=== PATIENT | female | born 1980 | race African-American/Black ===

== ENCOUNTER 2016-09-16 05:12 | Inpatient (IN) | payer OTHER ==
[~2016-09-16] VITALS: Ht 157.5 cm; Wt 91.6 kg
[~2016-09-16 05:12] MED LIST: ABILIFY 5 MG TAB5 M1 PO; AMBIEN 5 MG TABL5 M1 PO; CLONIDINE1000 MCG/1; CREON DR 12,001 EACH PO; DEMEROL50 MG PO; DIGESTIVE ENZY1 EACH PO; DILAUDID 2 MG TA2 MG PO; DOLOPHINE HCL5 MG PO; ERY-TAB500 MG PO; ERYTHROCIN STE250 MG PO; FENTANYL 1100 MCG/HR TP; FLAGYL500 MG PO; HCTZ; HYDROMORPHO2 MG/1 M5; KEFLEX500 MG PO; KEPPRA 500 MG500 M1 PO; LISINOPRIL-HCT1 EAC2 PO; LISINOPRIL2.5 MG PO; MS CONTIN 30 MG30 MG PO; MS CONTIN15 MG PO; NICOTINE TRANSDE7 MG TRANSDERM; NORCO 5-325 TA1 EACH PO; OXYCODONE HCL 55 MG PO; PANCREAZE 21,01 EACH; PERCOCET 5-3251 EACH PO; PERCOCET PO; PHENERGAN 25 MG25 M1 PO; PRINIVIL10 MG PO; PROBIOTIC1 EAC1 PO; PROMETHAZI25 MG/1 M2 IM; PROMETHAZINE HC25 M1 PO; PROMS25 WY RECTAL; PROZAC10 MG PO; REGLAN 10 MG TA10 M1; SEROQUEL 25 MG25 M2 PO; XANAX 0.5 MG0.5 M1 PO; XANAX 0.5 MG0.5 MG PO; XANAX 1 MG TABLE1 MG PO; XANAX XR1 MG PO; ZANTAC 150MG T150 M1 PO; ZOFRAN ODT4 MG PO; ZOFRAN4 MG PO; [UNRECOGNIZED DRUG - OTHER] GT
[2016-09-16 05:14] VITALS: BP 193/113
[2016-09-16 07:35] LABS: ABSOLUTE NEUTROPHILS 4.3 thou/uL (1.4-8.2); BASOPHILS 1.3 % (0.0-2.0); EOSINOPHILS 1.3 % (0.0-3.0); HEMATOCRIT 38.8 % (37.0-47.0); HEMOGLOBIN 12.8 gm/dL (12.0-15.0); LYMPHOCYTES 38.9 % (24.0-44.0); MCH 27.8 pg (26.0-34.0); MCV 84.2 fL (80.0-100.0); PLATELET COUNT 329 thou/uL (150-400); POLYS 53.5 % (36.0-66.0); RBC 4.61 mil/uL (4.20-5.00)
[2016-09-16 07:49] LABS: MANUAL DIFF NO
[2016-09-16 07:52] LABS: ALBUMIN 3.3 g/dL (3.4-5.0); CALCIUM 8.3 mg/dL (8.5-10.1); CREATININE 0.6 mg/dL (0.6-1.0); TOTAL BILIRUBIN 0.3 mg/dL (<0.1-1.0); TOTAL PROTEIN 7.7 g/dL (6.4-8.2)
[2016-09-16 08:06] LABS: POTASSIUM 2.7 mmol/L (3.5-5.1)
[2016-09-16 09:50] VITALS: BP 160/89
[2016-09-16 10:15] VITALS: BP 154/92
[2016-09-16 15:03] VITALS: BP 133/62
[2016-09-16 20:00] VITALS: BP 139/80
[2016-09-17 04:00] VITALS: BP 125/65
[2016-09-17 04:47] LABS: HEMATOCRIT 32.5 % (37.0-47.0); MCH 28.4 pg (26.0-34.0); MCHC 33.7 g/dL (28.0-37.0); MCV 84.1 fL (80.0-100.0); RBC 3.86 mil/uL (4.20-5.00); RDW 14.4 % (10.5-14.5); WBC 6.2 thou/uL (4.0-11.0)
[2016-09-17 04:59] LABS: CALCIUM 7.6 mg/dL (8.5-10.1); CREATININE 0.6 mg/dL (0.6-1.0); POTASSIUM 3.2 mmol/L (3.5-5.1)
[2016-09-17 09:07] VITALS: BP 119/63
[2016-09-17 13:30] LABS: CALCIUM 7.8 mg/dL (8.5-10.1); CREATININE 0.6 mg/dL (0.6-1.0); POTASSIUM 3.2 mmol/L (3.5-5.1)
[2016-09-17 16:05] VITALS: BP 134/71
[2016-09-17 20:00] VITALS: BP 165/110
[2016-09-18 00:10] VITALS: BP 162/92
[2016-09-18 05:00] VITALS: BP 178/101
[2016-09-18 09:00] VITALS: BP 155/96
[2016-09-18 17:24] VITALS: BP 169/95
[2016-09-18 20:00] VITALS: BP 145/82
[2016-09-19] MEDS ORDERED: OXYCONTIN20 M1 PO (02:38)
[2016-09-19] MEDS ORDERED: OXYCONTIN10 M1 PO (02:39)
[2016-09-19 04:00] VITALS: BP 147/74
[2016-09-19 07:48] VITALS: BP 153/91
[2016-09-19 16:14] VITALS: BP 152/87
[2016-09-19 20:00] VITALS: BP 175/93
[2016-09-20 03:46] VITALS: BP 157/84
[2016-09-20 07:40] VITALS: BP 165/94
[2016-09-20 11:17] VITALS: BP 181/86
[2016-09-20 16:10] VITALS: BP 164/87
[2016-09-20 20:00] VITALS: BP 187/87
[2016-09-21 03:59] VITALS: BP 165/94
[2016-09-21 12:07] LABS: HEMATOCRIT 32.6 % (37.0-47.0); HEMOGLOBIN 10.9 gm/dL (12.0-15.0); MCH 28.1 pg (26.0-34.0); MCHC 33.3 g/dL (28.0-37.0); MCV 84.2 fL (80.0-100.0); RBC 3.87 mil/uL (4.20-5.00); RDW 14.1 % (10.5-14.5); WBC 7.9 thou/uL (4.0-11.0)
[2016-09-21 12:22] LABS: CALCIUM 8.3 mg/dL (8.5-10.1); CREATININE 0.6 mg/dL (0.6-1.0)
[2016-09-21 12:25] LABS: POTASSIUM 2.7 mmol/L (3.5-5.1)
[2016-09-21 15:52] VITALS: BP 151/73
[2016-09-21 20:00] VITALS: BP 152/87
[2016-09-22 03:35] VITALS: BP 164/97
[2016-09-22 04:29] LABS: HEMATOCRIT 32.8 % (37.0-47.0); HEMOGLOBIN 10.9 gm/dL (12.0-15.0); MCH 28.4 pg (26.0-34.0); MCHC 33.4 g/dL (28.0-37.0); RBC 3.85 mil/uL (4.20-5.00); RDW 14.3 % (10.5-14.5); WBC 7.5 thou/uL (4.0-11.0)
[2016-09-22 04:37] LABS: CREATININE 0.7 mg/dL (0.6-1.0)
[2016-09-22 04:39] LABS: % SATURATION 10 % (20-39); IRON 36 ug/dL (50-170); TIBC 359 ug/dL (250-450); UIBC 323 ug/dL
[2016-09-22 07:40] VITALS: BP 163/85
[2016-09-22] MEDS ORDERED: OXYCODONE HCL 55 MG PO (09:09)
[2016-09-22] MEDS ORDERED: OXYCONTIN20 M1 PO (09:09)
[2016-09-22 12:41] VITALS: BP 163/85
== END 2016-09-22 14:24 | disposition home or self-care (01) | DRG 439 ==
LOC: ER 05:12 → 4E 09:03 → EROBS 09:03 → 4E 10:10
PROVIDERS: Emergency Medicine; Family Medicine; Internal Medicine; Internal Medicine Gastroenterology
DX: K86.1 Other chronic pancreatitis (principal); E44.1 Mild protein-calorie malnutrition; F43.10 Post-traumatic stress disorder, unspecified; G43.909 Migraine, unspecified, not intractable, without status migrainosus; E87.6 Hypokalemia; F17.210 Nicotine dependence, cigarettes, uncomplicated; E83.42 Hypomagnesemia; F41.1 Generalized anxiety disorder; I10 Essential (primary) hypertension; K59.00 Constipation, unspecified; F32.9 Major depressive disorder, single episode, unspecified; Z88.6 Allergy status to analgesic agent; Z88.5 Allergy status to narcotic agent; Z88.0 Allergy status to penicillin; Z88.8 Allergy status to other drugs, medicaments and biological substances; Z90.49 Acquired absence of other specified parts of digestive tract; Z80.0 Family history of malignant neoplasm of digestive organs; Z90.721 Acquired absence of ovaries, unilateral; Z68.36 Body mass index [BMI] 36.0-36.9, adult
CPT/HCPCS: 10084

== ENCOUNTER 2016-10-22 02:19 | Inpatient (IN) | payer OTHER ==
[~2016-10-22] VITALS: Ht 160 cm; Wt 85.7 kg
--- NOTE | ~2016-10-22 | HC ---
[facility] [place] [address] CONSULTATION Name: OLLIE MONROY Room #: 534-P ADM IN M.R.#: [id number] Admission: 10/22/16 Attend Phys: Mal Armas MD Discharge: Date of : 76 Report #: [id number] THIS REPORT FOR: //name// CC: Fely Armas DATE OF SERVICE: 10/23/2016 REASON FOR CONSULTATION: Abdominal pain. CONSULTING PHYSICIAN: CHLOE Paniagua. HISTORY OF PRESENT ILLNESS: This is a 36-year-old -[place] female with history of idiopathic chronic pancreatitis, who follows with Dr. Dontae Calixto here at the hospital. She underwent an ERCP in April 2016 when her pancreatic functions were noted to be 15%. Since then, she has noted more frequent acute flares of her pancreatitis. She is admitted with another flare at this time. She reports severe abdominal pain located in periumbilical region with radiation to the back, it was rated as 8/10. She has also some nausea, but no episode of vomiting. She reports smoking cigarettes, but does not use alcohol or illegal drugs. REVIEW OF SYSTEMS: As in HPI, otherwise 10-point review of systems negative. PAST MEDICAL AND SURGICAL HISTORY: 1. Idiopathic Chronic pancreatitis. 2. Hypokalemia. MEDICATION ALLERGIES: Reviewed. SOCIAL HISTORY: Denies alcohol or illegal drug use. Reports smoking cigarettes. FAMILY HISTORY: No family members with colorectal cancer or GI malignancy. PHYSICAL EXAMINATION: GENERAL: Alert and oriented to time, place and person, cooperative, appears in moderate distress. VITAL SIGNS: Blood pressure 140/65, oxygen saturation is 100% on vent, pulse 84, respiratory rate 16, temperature 99.1 degrees Fahrenheit. HEAD AND NECK: Pupils equal, reactive to light and accommodation. Extraocular movements are intact. No pallor, no icterus. NECK: Soft, supple. Midline trachea, thyroid nonpalpable. RESPIRATORY: Chest is clear to auscultation bilaterally. CARDIOVASCULAR: Regular rate and rhythm, no murmur. ABDOMEN: Soft, tender to palpation in all quadrants. Bowel sounds are present. [facility] [address] [place] [address] CONSULTATION Name: OLLIE MONROY Room #: 534-P ADM IN M.R.#: [id number] Admission: 10/22/16 Attend Phys: Mal Armas MD Discharge: Date of : 76 Report #: [id number] There was no hepatomegaly. EXTREMITIES: No cyanosis, clubbing or edema. SKIN: Warm and dry. No rashes present. NEUROLOGIC: Cranial nerves 2-12 grossly intact. No focal deficits. LABORATORY DATA: Reviewed and noted. Hemoglobin is 10.3, white count 8.5, platelets 225. Sodium 141, potassium 3.3, creatinine is 0.5, BUN is 6. Urine drug screen positive for opiates, benzodiazepine, and marijuana. Urinalysis negative. Last CT scan was around 09/15/2016 that showed normal pancreas. No biliary ductal dilation. There was large stool noted throughout the colon. DIAGNOSTIC IMPRESSION AND PLAN: 1. Abdominal pain. This could be acute flare of her chronic pancreatitis. Recommend aggressive IV hydration to her BUN and hematocrit. I think it is appropriate to advance her diet today to sips of water. 2. Chronic pancreatitis. She is under the care of and Dr. Dougherty. She should follow up with them as an outpatient once acute issues resolve. 3. Abnormal CT. It showed large amount of retained stool in the colon. Recommend aggressive bowel regimen to avoid constipation. Constipation can play a role in underlying abdominal pain also. Thank you for allowing me to participate in the care of the patient. By: [id number] Carlos Eduardo Sanchez MD /nt
[~2016-10-22 02:19] MED LIST changes: +OMEPRAZOLE40 MG PO; +OXYCODONE HCL15 MG PO; +OXYCONTIN10 M1 PO; +OXYCONTIN20 M1 PO
[2016-10-22 02:20] VITALS: BP 159/92
[2016-10-22 03:00] LABS: ABSOLUTE NEUTROPHILS 7.3 thou/uL (1.4-8.2); BASOPHILS 0.8 % (0.0-2.0); EOSINOPHILS 1.5 % (0.0-3.0); HEMATOCRIT 36.3 % (37.0-47.0); HEMOGLOBIN 12.1 gm/dL (12.0-15.0); LYMPHOCYTES 30.8 % (24.0-44.0); MCH 27.9 pg (26.0-34.0); MCHC 33.3 g/dL (28.0-37.0); MCV 83.6 fL (80.0-100.0); PLATELET COUNT 298 thou/uL (150-400); POLYS 58.9 % (36.0-66.0); RBC 4.34 mil/uL (4.20-5.00); RDW 14.2 % (10.5-14.5); WBC 12.5 thou/uL (4.0-11.0)
[2016-10-22 03:04] LABS: MANUAL DIFF NO
[2016-10-22 03:12] LABS: ALBUMIN 3.1 g/dL (3.4-5.0); CALCIUM 8.5 mg/dL (8.5-10.1); CREATININE 0.6 mg/dL (0.6-1.0); TOTAL BILIRUBIN 0.3 mg/dL (<0.1-1.0); TOTAL PROTEIN 7.1 g/dL (6.4-8.2)
[2016-10-22 03:14] LABS: POTASSIUM 2.8 mmol/L (3.5-5.1)
[2016-10-22 04:25] VITALS: BP 141/65
[2016-10-22 04:32] VITALS: BP 140/82
[2016-10-22 15:54] VITALS: BP 130/85
[2016-10-22 19:09] VITALS: BP 145/96
[2016-10-22 20:57] LABS: CALCIUM 7.8 mg/dL (8.5-10.1); CREATININE 0.6 mg/dL (0.6-1.0); MAGNESIUM 1.8 mg/dL (1.8-2.4); POTASSIUM 3.3 mmol/L (3.5-5.1)
[2016-10-22 23:43] LABS: URINE BILIRUBIN NEGATIVE (Negative); URINE BLOOD NEGATIVE (Negative); URINE COLOR YELLOW; URINE GLUCOSE-RANDOM* NEGATIVE (Negative); URINE KETONES NEGATIVE (Negative); URINE LEUKOCYTES-REFLEX NEGATIVE (Negative); URINE PROTEIN (DIPSTICK) NEGATIVE (Negative); URINE SPECIFIC GRAVITY >= 1.030 (1.003-1.035); URINE UROBILINOGEN 0.2 E.U./dl (0.2-1.0)
[2016-10-22 23:43] LABS: AMP/METHAMP Negative (Negative); BARBITURATES Negative (Negative); BENZODIAZEPINES POSITIVE (Negative); COCAINE Negative (Negative); METHADONE Negative (Negative); OPIATES POSITIVE (Negative); PCP Negative (Negative); THC POSITIVE (Negative)
[2016-10-23 02:40] VITALS: BP 112/59
[2016-10-23 05:17] LABS: HEMOGLOBIN 10.3 gm/dL (12.0-15.0); MCH 28.2 pg (26.0-34.0); MCHC 33.4 g/dL (28.0-37.0); MCV 84.5 fL (80.0-100.0); RBC 3.67 mil/uL (4.20-5.00); RDW 14.4 % (10.5-14.5); WBC 8.5 thou/uL (4.0-11.0)
[2016-10-23 05:24] LABS: CALCIUM 7.8 mg/dL (8.5-10.1); CREATININE 0.5 mg/dL (0.6-1.0); MAGNESIUM 1.7 mg/dL (1.8-2.4); POTASSIUM 3.3 mmol/L (3.5-5.1)
[2016-10-23 07:16] VITALS: BP 110/59
[2016-10-23 14:41] VITALS: BP 141/65
[2016-10-23 19:30] VITALS: BP 131/73
[2016-10-24 03:30] VITALS: BP 135/103
[2016-10-24 04:46] LABS: HEMATOCRIT 31.9 % (37.0-47.0); HEMOGLOBIN 10.4 gm/dL (12.0-15.0); MCH 27.9 pg (26.0-34.0); MCHC 32.7 g/dL (28.0-37.0); MCV 85.1 fL (80.0-100.0); RBC 3.75 mil/uL (4.20-5.00); RDW 14.7 % (10.5-14.5); WBC 8.1 thou/uL (4.0-11.0)
[2016-10-24 04:58] LABS: CALCIUM 8.2 mg/dL (8.5-10.1); CREATININE 0.6 mg/dL (0.6-1.0); MAGNESIUM 1.8 mg/dL (1.8-2.4); POTASSIUM 3.5 mmol/L (3.5-5.1)
[2016-10-24 08:31] VITALS: BP 135/82
[2016-10-24 17:00] VITALS: BP 158/91
[2016-10-24 19:43] VITALS: BP 173/99
[2016-10-25 07:23] LABS: HEMOGLOBIN 10.2 gm/dL (12.0-15.0); MCHC 32.7 g/dL (28.0-37.0); MCV 85.5 fL (80.0-100.0); RBC 3.63 mil/uL (4.20-5.00); RDW 14.8 % (10.5-14.5); WBC 7.2 thou/uL (4.0-11.0)
[2016-10-25 07:31] LABS: CALCIUM 8.7 mg/dL (8.5-10.1); CREATININE 0.6 mg/dL (0.6-1.0); MAGNESIUM 1.6 mg/dL (1.8-2.4); POTASSIUM 3.5 mmol/L (3.5-5.1)
[2016-10-25 08:03] VITALS: BP 155/96
[2016-10-25 16:44] VITALS: BP 134/90
[2016-10-25 19:40] VITALS: BP 155/95
[2016-10-26 04:20] VITALS: BP 162/103
[2016-10-26 06:01] LABS: HEMATOCRIT 31.4 % (37.0-47.0); HEMOGLOBIN 10.5 gm/dL (12.0-15.0); MCH 28.1 pg (26.0-34.0); MCHC 33.4 g/dL (28.0-37.0); MCV 84.1 fL (80.0-100.0); RBC 3.74 mil/uL (4.20-5.00); RDW 14.6 % (10.5-14.5); WBC 7.4 thou/uL (4.0-11.0)
[2016-10-26 06:23] LABS: CALCIUM 9.1 mg/dL (8.5-10.1); CREATININE 0.7 mg/dL (0.6-1.0); MAGNESIUM 1.6 mg/dL (1.8-2.4); POTASSIUM 3.7 mmol/L (3.5-5.1)
[2016-10-26 08:00] VITALS: BP 156/92
[2016-10-26 16:19] VITALS: BP 151/74
[2016-10-26 21:02] VITALS: BP 148/82
[2016-10-27 05:21] LABS: HEMATOCRIT 33.4 % (37.0-47.0); MCH 27.9 pg (26.0-34.0); MCV 84.7 fL (80.0-100.0); RBC 3.94 mil/uL (4.20-5.00); RDW 14.1 % (10.5-14.5); WBC 7.6 thou/uL (4.0-11.0)
[2016-10-27 05:23] VITALS: BP 139/71
[2016-10-27 05:30] LABS: CALCIUM 8.9 mg/dL (8.5-10.1); CREATININE 0.6 mg/dL (0.6-1.0); MAGNESIUM 1.7 mg/dL (1.8-2.4); POTASSIUM 3.8 mmol/L (3.5-5.1)
[2016-10-27 08:23] VITALS: BP 122/82
[2016-10-28 03:15] VITALS: BP 122/71
[2016-10-28 07:47] VITALS: BP 124/64
[2016-10-28 15:33] VITALS: BP 133/75
[2016-10-28 19:36] VITALS: BP 147/99
[2016-10-29 04:59] VITALS: BP 124/80
[2016-10-29 08:00] VITALS: BP 150/87
[2016-10-29 15:15] VITALS: BP 136/72
[2016-10-29 20:45] VITALS: BP 160/84
[2016-10-30 06:19] VITALS: BP 155/97
[2016-10-30 08:00] VITALS: BP 155/87
[2016-10-30 18:19] VITALS: BP 137/70
[2016-10-31 02:50] VITALS: BP 125/73
[2016-10-31 07:57] VITALS: BP 135/64
[2016-10-31 17:14] VITALS: BP 142/79
[2016-10-31 20:00] VITALS: BP 150/88
[2016-11-01 04:00] VITALS: BP 159/81
[2016-11-01 08:48] VITALS: BP 156/93
[2016-11-01] MEDS ORDERED: VANCOMYCIN100 MG/ML PO (16:44)
[2016-11-01] MEDS ORDERED: FLAGYL 250 MG250 MG PO (16:45)
[2016-11-01] MEDS ORDERED: AMLODIPINE BESYL5 M1 PO (16:45)
[2016-11-01] MEDS ORDERED: OXYCODONE HCL30 MG PO (16:45)
[2016-11-01] MEDS ORDERED: XANAX1 MG PO (16:46)
[2016-11-01 19:59] VITALS: BP 156/93
== END 2016-11-01 21:48 | disposition home or self-care (01) | DRG 438 ==
LOC: ER 02:19 → 5S 04:10 → EROBS 04:10 → 5S 04:26
PROVIDERS: Emergency Medicine; Internal Medicine
DX: K85.90 Acute pancreatitis without necrosis or infection, unspecified (principal); E43 Unspecified severe protein-calorie malnutrition; A04.5 Campylobacter enteritis; K86.1 Other chronic pancreatitis; I10 Essential (primary) hypertension; F43.10 Post-traumatic stress disorder, unspecified; G43.909 Migraine, unspecified, not intractable, without status migrainosus; B96.81 Helicobacter pylori [H. pylori] as the cause of diseases classified elsewhere; B96.89 Other specified bacterial agents as the cause of diseases classified elsewhere; F32.9 Major depressive disorder, single episode, unspecified; E87.6 Hypokalemia; E11.9 Type 2 diabetes mellitus without complications; K59.00 Constipation, unspecified; F17.210 Nicotine dependence, cigarettes, uncomplicated; E66.9 Obesity, unspecified; Z68.33 Body mass index [BMI] 33.0-33.9, adult; Z90.49 Acquired absence of other specified parts of digestive tract; Z86.61 Personal history of infections of the central nervous system; Z71.6 Tobacco abuse counseling; Z73.3 Stress, not elsewhere classified; Z79.899 Other long term (current) drug therapy; Z90.721 Acquired absence of ovaries, unilateral; Z88.0 Allergy status to penicillin; Z88.1 Allergy status to other antibiotic agents; Z88.2 Allergy status to sulfonamides; Z88.5 Allergy status to narcotic agent; Z88.8 Allergy status to other drugs, medicaments and biological substances; Z80.0 Family history of malignant neoplasm of digestive organs
CPT/HCPCS: 10086

== ENCOUNTER 2016-11-27 22:24 | Inpatient (IN) | payer OTHER ==
[~2016-11-27] VITALS: Ht 160 cm; Wt 92.9 kg
[~2016-11-27 22:24] MED LIST changes: +AMLODIPINE BESYL5 M1 PO; +FLAGYL 250 MG250 MG PO; +OXYCODONE HCL30 MG PO; +VANCOMYCIN100 MG/ML PO; +XANAX1 MG PO
[2016-11-27 22:35] VITALS: BP 239/180
[2016-11-27 23:15] LABS: ABSOLUTE NEUTROPHILS 6.2 thou/uL (1.4-8.2); BASOPHILS 0.9 % (0.0-2.0); EOSINOPHILS 1.7 % (0.0-3.0); HEMATOCRIT 36.3 % (37.0-47.0); HEMOGLOBIN 11.9 gm/dL (12.0-15.0); LYMPHOCYTES 34.8 % (24.0-44.0); MCH 27.6 pg (26.0-34.0); MCHC 32.7 g/dL (28.0-37.0); MCV 84.4 fL (80.0-100.0); MONOCYTES 6.7 % (1.0-8.0); PLATELET COUNT 302 thou/uL (150-400); POLYS 55.9 % (36.0-66.0); RDW 14.2 % (10.5-14.5); WBC 11.1 thou/uL (4.0-11.0)
[2016-11-27 23:15] LABS: URINE BILIRUBIN NEGATIVE (Negative); URINE BLOOD NEGATIVE (Negative); URINE COLOR YELLOW; URINE GLUCOSE-RANDOM* NEGATIVE (Negative); URINE KETONES NEGATIVE (Negative); URINE LEUKOCYTES-REFLEX NEGATIVE (Negative); URINE PROTEIN (DIPSTICK) NEGATIVE (Negative); URINE SPECIFIC GRAVITY <= 1.005 (1.003-1.035); URINE UROBILINOGEN 0.2 E.U./dl (0.2-1.0)
[2016-11-27 23:18] LABS: MANUAL DIFF NO
[2016-11-27 23:26] LABS: CALCIUM 9.4 mg/dL (8.5-10.1); CREATININE 0.7 mg/dL (0.6-1.0); POTASSIUM 3.4 mmol/L (3.5-5.1)
[2016-11-27 23:31] LABS: ALBUMIN 3.6 g/dL (3.4-5.0); TOTAL BILIRUBIN 0.1 mg/dL (<0.1-1.0); TOTAL PROTEIN 8.4 g/dL (6.4-8.2)
[2016-11-28] MEDS ORDERED: PHENERGAN 25 MG25 M1 PO (01:14)
[2016-11-28] MEDS ORDERED: OXYCODON-ACETA1 EAC1 PO (01:14)
[2016-11-28] MEDS ORDERED: ZOFRAN ODT4 MG PO (01:14)
[2016-11-28 04:12] VITALS: BP 141/91
[2016-11-28 04:49] VITALS: BP 115/56
[2016-11-28 06:59] VITALS: BP 109/65
[2016-11-28 11:37] VITALS: BP 110/49
[2016-11-28 15:45] VITALS: BP 121/77
[2016-11-28 19:03] VITALS: BP 137/80
[2016-11-29 00:07] VITALS: BP 147/64
[2016-11-29 04:04] VITALS: BP 145/76
[2016-11-29 06:31] LABS: HEMATOCRIT 34.4 % (37.0-47.0); HEMOGLOBIN 11.1 gm/dL (12.0-15.0); MCH 27.2 pg (26.0-34.0); MCHC 32.5 g/dL (28.0-37.0); MCV 83.9 fL (80.0-100.0); RBC 4.09 mil/uL (4.20-5.00); RDW 14.7 % (10.5-14.5); WBC 10.9 thou/uL (4.0-11.0)
[2016-11-29 06:39] LABS: CALCIUM 9.4 mg/dL (8.5-10.1); CREATININE 0.9 mg/dL (0.6-1.0); POTASSIUM 3.6 mmol/L (3.5-5.1)
[2016-11-29 09:07] VITALS: BP 153/81
[2016-11-29 11:10] VITALS: BP 147/83
[2016-11-29 15:57] VITALS: BP 136/82
[2016-11-29 19:57] VITALS: BP 151/90
[2016-11-30 04:39] VITALS: BP 145/83
[2016-11-30 06:34] LABS: HEMATOCRIT 32.2 % (37.0-47.0); HEMOGLOBIN 10.5 gm/dL (12.0-15.0); MCH 27.6 pg (26.0-34.0); MCHC 32.6 g/dL (28.0-37.0); MCV 84.6 fL (80.0-100.0); RBC 3.8 mil/uL (4.20-5.00); RDW 14.8 % (10.5-14.5); WBC 18.9 thou/uL (4.0-11.0)
[2016-11-30 06:48] LABS: CALCIUM 9.4 mg/dL (8.5-10.1); CREATININE 0.7 mg/dL (0.6-1.0); POTASSIUM 3.3 mmol/L (3.5-5.1)
[2016-11-30 08:30] VITALS: BP 159/101
[2016-11-30 11:48] VITALS: BP 156/96
[2016-11-30 15:57] VITALS: BP 158/98
[2016-11-30 19:40] VITALS: BP 130/106
[2016-12-01 05:40] VITALS: BP 170/100
[2016-12-01 07:25] VITALS: BP 186/102
[2016-12-01 11:25] VITALS: BP 178/94
[2016-12-01 15:36] VITALS: BP 160/83
[2016-12-01 20:23] VITALS: BP 193/98
[2016-12-01 22:37] VITALS: BP 180/90
[2016-12-02 04:16] VITALS: BP 164/87
[2016-12-02 06:58] VITALS: BP 156/80
[2016-12-02 08:59] LABS: HEMATOCRIT 33.4 % (37.0-47.0); MCH 27.7 pg (26.0-34.0); MCHC 32.8 g/dL (28.0-37.0); MCV 84.6 fL (80.0-100.0); RBC 3.95 mil/uL (4.20-5.00); RDW 14.7 % (10.5-14.5); WBC 10.6 thou/uL (4.0-11.0)
[2016-12-02 09:44] LABS: CALCIUM 8.8 mg/dL (8.5-10.1); CREATININE 0.9 mg/dL (0.6-1.0)
[2016-12-02 09:46] LABS: POTASSIUM 2.5 mmol/L (3.5-5.1)
[2016-12-02 15:49] VITALS: BP 161/96
[2016-12-02 20:32] VITALS: BP 159/102
[2016-12-03 06:59] VITALS: BP 185/100
[2016-12-03 09:12] LABS: POTASSIUM 3.3 mmol/L (3.5-5.1)
[2016-12-03] MEDS ORDERED: VENTOLIN HFA 1818 GM INH (15:56)
[2016-12-03] MEDS ORDERED: PREVALITE PACKE1 PKT PO (15:57)
[2016-12-03] MEDS ORDERED: BENAZEPRIL HCL10 MG PO (15:57)
[2016-12-03] MEDS ORDERED: OXYCODONE HCL30 MG PO (15:57)
[2016-12-03] MEDS ORDERED: XANAX1 MG PO (15:58)
[2016-12-03] MEDS ORDERED: GUAIFENESIN/COD10 M1 PO (15:58)
[2016-12-03] MEDS ORDERED: PREDNISONE 10 M10 MG PO (15:59)
[2016-12-03] MEDS ORDERED: BENZONATATE100 MG PO (15:59)
[2016-12-03] MEDS ORDERED: POTASSIUM20 PO (16:00)
[2016-12-03 16:58] VITALS: BP 185/100
== END 2016-12-03 17:40 | disposition home or self-care (01) | DRG 438 ==
LOC: ER 22:24 → EROBS 11-28 01:35 → 4W 11-28 04:32 → 5S 12-01 13:21
PROVIDERS: Emergency Medicine; Hospitalist; Nurse Practitioner Family
DX: K85.20 Alcohol induced acute pancreatitis without necrosis or infection (principal); K65.9 Peritonitis, unspecified; J20.9 Acute bronchitis, unspecified; K86.0 Alcohol-induced chronic pancreatitis; I10 Essential (primary) hypertension; F43.10 Post-traumatic stress disorder, unspecified; G43.909 Migraine, unspecified, not intractable, without status migrainosus; F32.9 Major depressive disorder, single episode, unspecified; F17.210 Nicotine dependence, cigarettes, uncomplicated; Z90.49 Acquired absence of other specified parts of digestive tract; Z90.721 Acquired absence of ovaries, unilateral; Z88.0 Allergy status to penicillin; Z88.1 Allergy status to other antibiotic agents; Z88.2 Allergy status to sulfonamides; Z88.5 Allergy status to narcotic agent; Z88.8 Allergy status to other drugs, medicaments and biological substances; Z80.0 Family history of malignant neoplasm of digestive organs
CPT/HCPCS: 10040; 10086

== ENCOUNTER 2017-01-12 22:39 | Emergency (ER) | payer OTHER ==
[~2017-01-12] VITALS: Ht 157.5 cm; Wt 89.8 kg
[~2017-01-12 22:39] MED LIST changes: +BENAZEPRIL HCL10 MG PO; +BENZONATATE100 MG PO; +GUAIFENESIN/COD10 M1 PO; +OXYCODON-ACETA1 EAC1 PO; +POTASSIUM20 PO; +PREDNISONE 10 M10 MG PO; +PREVALITE PACKE1 PKT PO; +VENTOLIN HFA 1818 GM INH
[2017-01-12 23:23] LABS: ABSOLUTE NEUTROPHILS 7.1 thou/uL (1.4-8.2); BASOPHILS 0.6 % (0.0-2.0); EOSINOPHILS 0.9 % (0.0-3.0); HEMOGLOBIN 12.9 gm/dL (12.0-15.0); LYMPHOCYTES 29.3 % (24.0-44.0); MCH 28.6 pg (26.0-34.0); MCHC 33.1 g/dL (28.0-37.0); MCV 86.3 fL (80.0-100.0); MONOCYTES 7.3 % (1.0-8.0); PLATELET COUNT 222 thou/uL (150-400); POLYS 61.9 % (36.0-66.0); RBC 4.52 mil/uL (4.20-5.00); RDW 15.5 % (10.5-14.5); WBC 11.4 thou/uL (4.0-11.0)
[2017-01-12 23:24] LABS: MANUAL DIFF NO
[2017-01-12 23:30] LABS: ANION GAP 11 mmol/L (7-16); BUN 17 mg/dL (7-18); CALCIUM 9.1 mg/dL (8.5-10.1); CHLORIDE 99 mmol/L (98-107); CO2 26 mmol/L (21-32); GLUCOSE 112 mg/dL (74-106); POTASSIUM 3.7 mmol/L (3.5-5.1); SODIUM 136 mmol/L (136-145)
[2017-01-12 23:37] LABS: ALBUMIN 3.4 g/dL (3.4-5.0); ALKALINE PHOSPHATASE 100 U/L (46-116); DIRECT BILIRUBIN < 0.1 mg/dL (<0.1-0.3); SGOT 18 U/L (15-37); SGPT 26 U/L (30-65); TOTAL BILIRUBIN 0.3 mg/dL (<0.1-1.0); TOTAL PROTEIN 7.5 g/dL (6.4-8.2)
[2017-01-13 00:20] LABS: URINE BILIRUBIN NEGATIVE (Negative); URINE BLOOD NEGATIVE (Negative); URINE COLOR YELLOW; URINE GLUCOSE-RANDOM* NEGATIVE (Negative); URINE KETONES NEGATIVE (Negative); URINE LEUKOCYTES-REFLEX NEGATIVE (Negative); URINE PROTEIN (DIPSTICK) NEGATIVE (Negative); URINE UROBILINOGEN 0.2 E.U./dl (0.2-1.0)
== END 2017-01-13 01:20 | disposition home or self-care (01) ==
LOC: ER 22:39
PROVIDERS: Emergency Medicine
DX: R10.13 Epigastric pain (principal); F11.20 Opioid dependence, uncomplicated; N80.9 Endometriosis, unspecified; I10 Essential (primary) hypertension; F43.10 Post-traumatic stress disorder, unspecified; G43.909 Migraine, unspecified, not intractable, without status migrainosus; K86.1 Other chronic pancreatitis; F32.9 Major depressive disorder, single episode, unspecified; F17.210 Nicotine dependence, cigarettes, uncomplicated; Z88.1 Allergy status to other antibiotic agents; Z90.49 Acquired absence of other specified parts of digestive tract; Z88.5 Allergy status to narcotic agent; Z88.8 Allergy status to other drugs, medicaments and biological substances; Z88.0 Allergy status to penicillin; Z88.2 Allergy status to sulfonamides; Z88.6 Allergy status to analgesic agent

== ENCOUNTER 2017-02-23 01:08 | Emergency (ER) | payer OTHER ==
[~2017-02-23] VITALS: Ht 157.5 cm; Wt 86.2 kg
[2017-02-23] MEDS ORDERED: LISINOPRIL20 MG PO (01:18)
[2017-02-23 02:00] LABS: BASOPHILS 0.7 % (0.0-2.0); EOSINOPHILS 1.4 % (0.0-3.0); HEMATOCRIT 39.3 % (37.0-47.0); LYMPHOCYTES 40.4 % (24.0-44.0); MCH 28.6 pg (26.0-34.0); MCHC 33.1 g/dL (28.0-37.0); MCV 86.3 fL (80.0-100.0); MONOCYTES 7.1 % (1.0-8.0); PLATELET COUNT 357 thou/uL (150-400); POLYS 50.4 % (36.0-66.0); RBC 4.56 mil/uL (4.20-5.00); RDW 14.6 % (10.5-14.5)
[2017-02-23 02:01] LABS: URINE BILIRUBIN NEGATIVE (Negative); URINE BLOOD 3+ (Negative); URINE COLOR YELLOW; URINE GLUCOSE-RANDOM* NEGATIVE (Negative); URINE KETONES NEGATIVE (Negative); URINE LEUKOCYTES-REFLEX NEGATIVE (Negative); URINE PROTEIN (DIPSTICK) NEGATIVE (Negative); URINE UROBILINOGEN 0.2 E.U./dl (0.2-1.0)
[2017-02-23 02:03] LABS: CREATININE 0.6 mg/dL (0.6-1.0); POTASSIUM 3.1 mmol/L (3.5-5.1)
[2017-02-23 02:08] LABS: MANUAL DIFF NO
[2017-02-23 02:09] LABS: ALBUMIN 3.6 g/dL (3.4-5.0); TOTAL BILIRUBIN 0.3 mg/dL (<0.1-1.0); TOTAL PROTEIN 7.7 g/dL (6.4-8.2)
[2017-02-23 02:11] LABS: SQUAMOUS 4-10 Moderate /LPF (0-3)
[2017-02-23 02:12] LABS: CASTS None Seen /LPF (None Seen); CRYSTALS None Seen /LPF (None Seen); URINE RBC 3-10 Few /HPF (0-2); URINE WBC-REFLEX None Seen /HPF (0-5)
[2017-02-24 20:07] LABS: CHLAMYDIA TRACHOMATIS-PCR Negative (Negative); NEISSERIA GONORRHEA-PCR Negative (Negative)
== END 2017-02-23 04:09 | disposition home or self-care (01) ==
LOC: ER 01:08
PROVIDERS: Emergency Medicine
DX: R10.2 Pelvic and perineal pain (principal); F17.210 Nicotine dependence, cigarettes, uncomplicated; I10 Essential (primary) hypertension; F90.9 Attention-deficit hyperactivity disorder, unspecified type; G43.909 Migraine, unspecified, not intractable, without status migrainosus; F32.9 Major depressive disorder, single episode, unspecified; Z88.5 Allergy status to narcotic agent; Z88.2 Allergy status to sulfonamides; Z88.0 Allergy status to penicillin; Z88.1 Allergy status to other antibiotic agents; Z88.8 Allergy status to other drugs, medicaments and biological substances; Z90.721 Acquired absence of ovaries, unilateral; N93.9 Abnormal uterine and vaginal bleeding, unspecified

== ENCOUNTER 2017-03-11 04:24 | Inpatient (IN) | payer OTHER ==
[~2017-03-11] VITALS: Ht 157.5 cm; Wt 89.8 kg
--- NOTE | ~2017-03-11 | P ---
[facility] [place] [address] PROCEDURE REPORT Name: OLLIE MONROY Room #: 422-P ADM IN M.R.#: [id number] Admission: 03/11/17 Attend Phys: Mal Armas MD Discharge: Date of : 76 Report #: [id number] THIS REPORT FOR: //name// CC: SHARI DOUGHERTY MD BRIEF HISTORY: The patient is a 36-year-old woman with history of diabetes. She also has chronic pain related to chronic pancreatitis for which she sees Dr. Dougherty. She uses narcotics daily as well as nonsteroidals. She is admitted with nausea, vomiting, abdominal pain and dysphagia. PREOPERATIVE DIAGNOSES: 1. Nausea. 2. Vomiting. 3. Dysphagia. POSTOPERATIVE DIAGNOSES: 1. Moderate amount of retained food in the stomach consistent with gastroparesis. 2. Dysphagia. MEDICATIONS: Deep sedation with propofol per anesthesia. SPECIMEN: None. ESTIMATED BLOOD LOSS: None. PROCEDURE: EGD and Thacker dilation. FINDINGS: Prior to propofol sedation, procedure of upper endoscopy and dilation was reviewed with the patient as well as potential risks and its complications. She indicates she understands and desires to proceed. DESCRIPTION OF PROCEDURE: With the patient in left lateral decubitus position, the Fuji video endoscope was inserted in the cervical esophagus under direct vision without difficulty. Examination of this organ through its entire length revealed normal esophageal mucosa down to the squamocolumnar junction. I did not see evidence of esophagitis, Mckeon mucosa or significant hiatus hernia. In addition, a stricture or mass lesion was not seen. Scope was advanced in the stomach, was examined on end view as well as retroflexed views. There was a moderate amount of amorphous solid material within the body of the stomach. Within these limitations, the mucosa as well that could be visualized was normal. No ulcers or erosions were seen, no bleeding lesions were seen. There was no endoscopic evidence of outlet obstruction. Upon retroflexion, no mass, lesions were seen. A hiatus hernia was not seen. The pylorus, duodenal bulb [facility] [address] [place] [address] PROCEDURE REPORT Name: ELIANAOLLIE R Room #: 422-P [facility] IN M.R.#: [id number] Admission: 03/11/17 Attend Phys: Mal Armas MD Discharge: Date of : 76 Report #: [id number] and post bulbar duodenal sweep down the third portion was inspected and noted to be unremarkable. At that point, the scope was slowly withdrawn and careful circumferential views confirmed the above findings. We removed as much as air as possible. In addition, it was noted biopsies done earlier this year were negative for H. pylori and small bowel biopsies done at the same time were negative for celiac disease. Biopsies were not repeated today. Following the procedure, she was dilated with passage of 50-Nepali Thacker dilator. There was no resistance. DISPOSITION: The patient with abdominal pain, nausea and vomiting. I suspect part of her nausea and vomiting is related to her heavy use of narcotics with 15 mg of oxycodone 3 times a day. She also used 200 mg of ibuprofen daily for headaches, but no ulcers were seen at this time. It is noted she has not tolerated metoclopramide in the past. We will start erythromycin intravenously as well as clear liquids, have her see business planning analyst. In view of her diabetes and use of narcotics, these are likely significant facts as regards to her symptoms of nausea, vomiting and potential abdominal pain. In regards to her diabetes and gastroparesis, reduction or discontinuation of the narcotics may be very helpful. <ELECTRONICALLY SIGNED> By: Rashawn Curry MD 03/14/17 1749 [id number] Rashawn Curry MD /nt
--- NOTE | ~2017-03-11 | HC ---
[facility] [place] [address] CONSULTATION Name: OLLIE MONROY Room #: 422-P [facility] IN M.R.#: [id number] Admission: 03/11/17 Attend Phys: Mal Armas MD Discharge: Date of : 76 Report #: [id number] THIS REPORT FOR: //name// CC: Fely Armas DATE OF SERVICE: 03/11/2017 GASTROINTESTINAL CONSULTATION DATE OF SERVICE: 03/11/2017 REASON FOR CONSULTATION: Abdominal pain, nausea, vomiting, history of chronic pancreatitis. HISTORY OF PRESENT ILLNESS: The patient is a 36-year-old black female admitted through the Emergency Room with severe abdominal pain, nausea and vomiting. Pain was of sudden onset 5 days ago and pain was rated 9/10, most prominent in the upper abdomen, but did involve the entire abdomen. She had not been able to eat or drink due to nausea and has been unable to keep anything down. She reports that she had a grand mal seizure while at home, but did recover from this and she was not brought to the Emergency Room at that point in time. She relates that pain is similar to her previous flares of pancreatitis attributed to chronic pancreatitis for which she has been on pancreatic enzyme supplement. She had reported that her serum pancreatic enzymes may not always be elevated in her situation. Previous evaluation for chronic pancreatitis has included previous endoscopic ultrasound and ERCP she relates last year ago by Dr. Dougherty. No report is currently available. She did relate that she did follow up in the office earlier this year with nurse practitioner. She was originally diagnosed with pancreatitis in 2007 and has been on disability due to continued pain. PAST MEDICAL HISTORY: She has multiple medical problems including chronic abdominal pain attributed to chronic pancreatitis, previous seizures that developed after previous diagnosis of meningitis in 2015. She has a history of C. difficile diarrhea. She has a history of endometriosis, hypertension, migraine headaches, depression, previous C. difficile infection. PAST SURGICAL HISTORY: Include tubal ligation, cervical surgery, right oophorectomy, appendectomy and cholecystectomy. HOME MEDICATIONS: Abilify 7.5 mg at bedtime, albuterol inhalers p.r.n., oxycodone p.r.n., alprazolam each day, lactobacillus, digestive enzymes 2 tablets before each meal, zolpidem 5 mg p.r.n., Keppra 750 mg p.o. b.i.d., lisinopril 20 mg per day, ranitidine 150 mg per day. [address] [address] CONSULTATION Name: OLLIE MONROY Room #: 422-P [facility] IN [facility]#: [id number] Admission: 03/11/17 Attend Phys: Mal Armas MD Discharge: Date of : 76 Report #: [id number] ALLERGIES: CLINDAMYCIN, FENTANYL, METOCLOPRAMIDE, MORPHINE, PENICILLINS, PROPOXYPHENE, SULFA, TORADOL. SOCIAL HISTORY: She does smoke 1 pack per day. She does not drink alcohol. REVIEW OF SYSTEMS: She has had no documented fevers or chills. Weight has remained stable. She had a seizure last week, but is alert at this time. She describes some problems with swallowing as if a flap is not opening and she may cough immediately after swallowing. She has no significant shortness of breath or wheezing, otherwise. She denies chest pain. She has diffuse abdominal pain with nausea and vomiting. She had no symptoms of dysuria or hematuria. She had noted no evidence of bleeding. PHYSICAL EXAMINATION: GENERAL: She appeared alert and in no acute distress at rest. VITAL SIGNS: Afebrile, blood pressure was elevated to 187/114 earlier today. On admission, blood pressure was 168/97. HEENT: She has no scleral icterus. NECK: Supple, without lymphadenopathy or thyromegaly. CARDIOVASCULAR: Heart rate and rhythm regular. LUNGS: Clear to auscultation. ABDOMEN: Soft, moderately obese with diffuse tenderness throughout the abdomen, more prominent in the epigastrium. She has no significant peripheral edema. LABORATORY DATA: White blood cell count 8800, hemoglobin 12.6, platelet count 279,000. Potassium 3.0. Glucose 152. Amylase and lipase were not elevated at 21 and 72 on admission. KUB revealed nonspecific abdominal findings with no evidence of obstruction. IMPRESSION: 1. Recurrent abdominal pain, nausea and vomiting, may be related to known history of chronic pancreatitis. 2. Difficulty with swallowing with subsequent coughing. 3. Chronic pancreatitis. 4. Recent seizures at home. RECOMMENDATIONS: 1. Keep n.p.o. 2. Bedside swallowing study. 3. IV pantoprazole 40 mg per day. [address] [address] CONSULTATION Name: OLLIE MONROY Room #: 422-P [facility] IN M.R.#: [id number] Admission: 03/11/17 Attend Phys: Mal Armas MD Discharge: Date of : 76 Report #: [id number] 4. Pain management. 5. With advancing diet, pancreatic enzymes will be resumed. By: [id number] Jeronimo Castaneda MD /nt
[~2017-03-11 04:24] MED LIST changes: +LISINOPRIL20 MG PO
[2017-03-11 04:28] VITALS: BP 172/108
[2017-03-11] MEDS ORDERED: ZANTAC 150MG T150 MG PO (04:38)
[2017-03-11 05:05] LABS: ABSOLUTE NEUTROPHILS 5.1 thou/uL (1.4-8.2); EOSINOPHILS 1.6 % (0.0-3.0); HEMATOCRIT 38.8 % (37.0-47.0); HEMOGLOBIN 12.6 gm/dL (12.0-15.0); LYMPHOCYTES 31.8 % (24.0-44.0); MCH 28.2 pg (26.0-34.0); MCHC 32.5 g/dL (28.0-37.0); MCV 86.8 fL (80.0-100.0); MONOCYTES 7.7 % (1.0-8.0); PLATELET COUNT 279 thou/uL (150-400); POLYS 57.9 % (36.0-66.0); RBC 4.47 mil/uL (4.20-5.00); RDW 14.7 % (10.5-14.5); WBC 8.8 thou/uL (4.0-11.0)
[2017-03-11 05:06] LABS: MANUAL DIFF NO
[2017-03-11 05:15] LABS: CALCIUM 9.8 mg/dL (8.5-10.1); CREATININE 0.6 mg/dL (0.6-1.0)
[2017-03-11 05:23] LABS: ALBUMIN 3.4 g/dL (3.4-5.0); TOTAL BILIRUBIN 0.2 mg/dL (<0.1-1.0); TOTAL PROTEIN 7.5 g/dL (6.4-8.2)
[2017-03-11] MEDS ORDERED: NORCO 5-325 TA1 EACH PO (06:02)
[2017-03-11] MEDS ORDERED: ACYCLOVIR 200200 MG PO (06:02)
[2017-03-11] MEDS ORDERED: PRILOSEC 20 MG20 MG PO (06:02)
[2017-03-11] MEDS ORDERED: ZOFRAN ODT8 MG PO (06:02)
[2017-03-11 07:23] VITALS: BP 152/90
[2017-03-11 08:05] VITALS: BP 168/97
[2017-03-11 08:18] VITALS: BP 187/114
[2017-03-11 16:40] VITALS: BP 150/97
[2017-03-11 19:52] VITALS: BP 155/99
[2017-03-12 04:38] VITALS: BP 148/86
[2017-03-12 05:16] LABS: HEMATOCRIT 33.9 % (37.0-47.0); HEMOGLOBIN 11.1 gm/dL (12.0-15.0); MCH 28.2 pg (26.0-34.0); MCHC 32.7 g/dL (28.0-37.0); MCV 86.4 fL (80.0-100.0); RBC 3.92 mil/uL (4.20-5.00); RDW 14.8 % (10.5-14.5); WBC 6.6 thou/uL (4.0-11.0)
[2017-03-12 05:19] LABS: CALCIUM 8.7 mg/dL (8.5-10.1); CREATININE 0.6 mg/dL (0.6-1.0); POTASSIUM 3.5 mmol/L (3.5-5.1)
[2017-03-12 07:38] VITALS: BP 132/82
[2017-03-12 15:56] VITALS: BP 127/70
[2017-03-12 21:00] VITALS: BP 149/104
[2017-03-13 04:30] VITALS: BP 137/94
[2017-03-13 05:29] LABS: HEMATOCRIT 33.7 % (37.0-47.0); MCH 28.4 pg (26.0-34.0); MCHC 32.6 g/dL (28.0-37.0); MCV 87.1 fL (80.0-100.0); RBC 3.87 mil/uL (4.20-5.00); RDW 14.8 % (10.5-14.5); WBC 7.2 thou/uL (4.0-11.0)
[2017-03-13 05:35] LABS: CALCIUM 8.9 mg/dL (8.5-10.1); CREATININE 0.6 mg/dL (0.6-1.0); POTASSIUM 3.6 mmol/L (3.5-5.1)
[2017-03-13 08:00] VITALS: BP 142/100
[2017-03-13 16:00] VITALS: BP 150/95
[2017-03-14 03:45] VITALS: BP 121/71
[2017-03-14 08:55] VITALS: BP 151/90
[2017-03-14 15:14] VITALS: BP 131/80
[2017-03-14 20:36] VITALS: BP 130/83
[2017-03-15 03:49] VITALS: BP 138/81
[2017-03-15 07:30] VITALS: BP 136/79
[2017-03-15 16:28] VITALS: BP 147/96
[2017-03-15 19:24] VITALS: BP 150/82
[2017-03-16 03:15] VITALS: BP 160/98
[2017-03-16 07:31] VITALS: BP 161/109
[2017-03-16] MEDS ORDERED: PERCOCET 10-321 EACH PO (14:35)
[2017-03-16] MEDS ORDERED: ERYTHROMYCIN250 M1 PO (14:35)
[2017-03-16 15:35] VITALS: BP 161/109
== END 2017-03-16 16:59 | disposition home or self-care (01) | DRG 392 ==
LOC: ER 04:24 → 4E 07:31
PROVIDERS: Emergency Medicine; Hospitalist
PROC: 0D758ZZ Dilation of Esophagus, Via Natural or Artificial Opening Endoscopic (ICD-10-PCS; principal; 2017-03-13)
DX: K31.84 Gastroparesis (principal); K86.1 Other chronic pancreatitis; I10 Essential (primary) hypertension; F43.10 Post-traumatic stress disorder, unspecified; E87.6 Hypokalemia; G40.909 Epilepsy, unspecified, not intractable, without status epilepticus; F32.9 Major depressive disorder, single episode, unspecified; F17.210 Nicotine dependence, cigarettes, uncomplicated; G43.909 Migraine, unspecified, not intractable, without status migrainosus; Z90.49 Acquired absence of other specified parts of digestive tract; Z90.721 Acquired absence of ovaries, unilateral; Z88.1 Allergy status to other antibiotic agents; Z88.5 Allergy status to narcotic agent; Z88.0 Allergy status to penicillin; Z88.2 Allergy status to sulfonamides; Z88.8 Allergy status to other drugs, medicaments and biological substances; Z80.0 Family history of malignant neoplasm of digestive organs
CPT/HCPCS: 10183; 10783; 62110; 62900; 70005

== ENCOUNTER 2017-07-03 00:05 | Inpatient (IN) | payer OTHER ==
[2017-07-03] VITALS (8 sets, daily range): BP systolic 111–167; BP diastolic 63–108
[~2017-07-03] VITALS: Ht 157.5 cm; Wt 88.9 kg
[~2017-07-03 00:05] MED LIST changes: +ACYCLOVIR 200200 MG PO; +ERYTHROMYCIN250 M1 PO; +PERCOCET 10-321 EACH PO; +PRILOSEC 20 MG20 MG PO; +ZANTAC 150MG T150 MG PO; +ZOFRAN ODT8 MG PO
[2017-07-03] MEDS ORDERED: ZANTAC 150MG T150 MG PO (00:15)
[2017-07-03] MEDS ORDERED: CLONIDINE HCL0.2 M2 PO (00:15)
[2017-07-03 00:26] LABS: URINE BILIRUBIN NEGATIVE (Negative); URINE BLOOD NEGATIVE (Negative); URINE CLARITY CLEAR; URINE COLOR YELLOW; URINE GLUCOSE-RANDOM* NEGATIVE (Negative); URINE KETONES NEGATIVE (Negative); URINE LEUKOCYTES-REFLEX NEGATIVE (Negative); URINE NITRITE-REFLEX NEGATIVE (Negative); URINE PROTEIN (DIPSTICK) NEGATIVE (Negative); URINE SPECIFIC GRAVITY 1.015 (1.005-1.035); URINE UROBILINOGEN 0.2 E.U./dl (0.2-1.0)
[2017-07-03 00:56] LABS: ABSOLUTE NEUTROPHILS 6.9 thou/uL (1.4-8.2); BASOPHILS 0.7 % (0.0-2.0); EOSINOPHILS 0.5 % (0.0-3.0); HEMATOCRIT 39.3 % (37.0-47.0); HEMOGLOBIN 13.1 gm/dL (12.0-15.0); LYMPHOCYTES 30.9 % (24.0-44.0); MCH 28.8 pg (26.0-34.0); MCHC 33.3 g/dL (28.0-37.0); MCV 86.6 fL (80.0-100.0); MONOCYTES 3.6 % (1.0-8.0); PLATELET COUNT 387 thou/uL (150-400); POLYS 64.3 % (36.0-66.0); RBC 4.54 mil/uL (4.20-5.00); RDW 14.4 % (10.5-14.5); WBC 10.7 thou/uL (4.0-11.0)
[2017-07-03 01:01] LABS: CALCIUM 9.3 mg/dL (8.5-10.1); CREATININE 0.7 mg/dL (0.6-1.0)
[2017-07-03 01:03] LABS: POTASSIUM 4.1 mmol/L (3.5-5.1)
[2017-07-03 01:07] LABS: ALBUMIN 3.5 g/dL (3.4-5.0); TOTAL BILIRUBIN 0.3 mg/dL (<0.1-1.0); TOTAL PROTEIN 7.7 g/dL (6.4-8.2)
[2017-07-04 03:22] VITALS: BP 175/96
[2017-07-04 07:18] LABS: CALCIUM 8.5 mg/dL (8.5-10.1); CREATININE 0.7 mg/dL (0.6-1.0); POTASSIUM 4.1 mmol/L (3.5-5.1)
[2017-07-04 08:29] VITALS: BP 165/111
[2017-07-04 16:44] VITALS: BP 160/93
[2017-07-04 20:15] VITALS: BP 134/77
[2017-07-05 04:30] VITALS: BP 148/79
[2017-07-05 07:30] VITALS: BP 140/76
[2017-07-05 20:05] VITALS: BP 167/99
[2017-07-06 01:14] VITALS: BP 160/87
[2017-07-06 04:07] VITALS: BP 160/84
[2017-07-06 07:45] VITALS: BP 175/86
[2017-07-06 13:12] VITALS: BP 118/59
[2017-07-06 19:48] VITALS: BP 153/81
[2017-07-07 04:50] VITALS: BP 148/83
[2017-07-07 07:30] VITALS: BP 153/95
[2017-07-07 13:16] VITALS: BP 144/77
[2017-07-07 19:36] VITALS: BP 142/86
[2017-07-08 03:34] VITALS: BP 137/92
[2017-07-08 08:34] VITALS: BP 104/53
[2017-07-08 16:01] VITALS: BP 93/68
[2017-07-08 19:10] VITALS: BP 121/75
[2017-07-09 03:59] VITALS: BP 106/83
[2017-07-09 07:20] VITALS: BP 119/77
[2017-07-09 10:16] VITALS: BP 119/77
[2018-01-05] MEDS ORDERED: OXYCODONE HCL15 MG PO (03:30)
== END 2017-07-09 11:01 | disposition home or self-care (01) | DRG 392 ==
LOC: ER 00:05 → 4E 02:04 → EROBS 02:04 → 4E 02:48
PROVIDERS: Emergency Medicine; Nurse Practitioner Family
DX: R10.9 Unspecified abdominal pain (principal); K86.1 Other chronic pancreatitis; F11.20 Opioid dependence, uncomplicated; I10 Essential (primary) hypertension; F43.10 Post-traumatic stress disorder, unspecified; G43.909 Migraine, unspecified, not intractable, without status migrainosus; F32.9 Major depressive disorder, single episode, unspecified; F17.210 Nicotine dependence, cigarettes, uncomplicated; F41.9 Anxiety disorder, unspecified; E11.43 Type 2 diabetes mellitus with diabetic autonomic (poly)neuropathy; K31.84 Gastroparesis; G89.29 Other chronic pain; Z79.899 Other long term (current) drug therapy; Z90.49 Acquired absence of other specified parts of digestive tract; Z90.721 Acquired absence of ovaries, unilateral; Z88.1 Allergy status to other antibiotic agents; Z88.5 Allergy status to narcotic agent; Z88.0 Allergy status to penicillin; Z88.2 Allergy status to sulfonamides; Z88.8 Allergy status to other drugs, medicaments and biological substances; Z80.0 Family history of malignant neoplasm of digestive organs
CPT/HCPCS: 10084

== ENCOUNTER → 2019-12-30 | Outpatient (CLI) | payer OTHER ==
[~2019-12-30] MED LIST changes: +CLONIDINE HCL0.2 M2 PO; +DIGESTIVE ENZY1 EAC1 PO; -DIGESTIVE ENZY1 EACH PO; +GLUCOSE4 GM PO; +KLONOPIN0.5 MG PO; +PHENERGAN 25 MG25 MG PO; +PROTONIX40 M2 PO; +ROXICODONE15 M1 PO
== END ==
LOC: LAB 13:02
PROVIDERS: ATTEND Anesthesiology
DX: Z01.812 Encounter for preprocedural laboratory examination (principal); Z20.828 Contact with and (suspected) exposure to other viral communicable diseases

== ENCOUNTER → 2020-01-06 | Outpatient (CLI) | payer OTHER | LOC: LAB 08:00 | PROVIDERS: ATTEND Student in an Organized Health Care Education/Training Program | DX: Z01.812 Encounter for preprocedural laboratory examination (principal); Z20.828 Contact with and (suspected) exposure to other viral communicable diseases ==

== ENCOUNTER → 2020-01-13 | Outpatient (CLI) | payer OTHER | LOC: LAB 08:00 | PROVIDERS: ATTEND Student in an Organized Health Care Education/Training Program | DX: Z01.818 Encounter for other preprocedural examination (principal); Z11.59 Encounter for screening for other viral diseases ==

== ENCOUNTER 2020-01-21 13:02 | Outpatient (CLI) | payer OTHER ==
[~2020-01-21] VITALS: Ht 157.5 cm; Wt 90.7 kg
== END 2020-01-21 16:30 | disposition home or self-care (01) ==
LOC: MRI 13:02 → TBA 13:06 → MRI 13:12
PROVIDERS: ATTEND Anesthesiology
DX: E23.6 Other disorders of pituitary gland (principal); F40.240 Claustrophobia
CPT/HCPCS: 62110; 62900; 70005